=== PATIENT | female | born 1980 | race African-American/Black ===

== ENCOUNTER 2017-03-08 11:34 | Emergency (ER) | payer BC ==
[~2017-03-08] VITALS: Ht 172.7 cm; Wt 77.1 kg
[~2017-03-08 11:34] MED LIST: VALTREX 500 MG500 M1
[2017-03-08] MEDS ORDERED: PREDNISONE 20 M20 MG PO (12:49)
[2017-03-08 12:56] VITALS: BP 140/92
== END 2017-03-08 12:58 | disposition home or self-care (01) ==
LOC: M.ERS 11:34
DX: R05 Cough (principal); R06.02 Shortness of breath; Z91.013 Allergy to seafood

== ENCOUNTER 2017-04-22 09:28 | Emergency (ER) | payer BC ==
[~2017-04-22] VITALS: Ht 175.3 cm; Wt 81.7 kg
[~2017-04-22 09:28] MED LIST changes: +PREDNISONE 20 M20 MG PO
[2017-04-22 10:46] LABS: ANION GAP 6 mmol/L (7-16); BUN 11 mg/dL (7-18); CALCIUM 8.9 mg/dL (8.5-10.1); CHLORIDE 107 mmol/L (98-107); CO2 28 mmol/L (21-32); CREATININE 1.2 mg/dL (0.6-1.3); GLUCOSE 90 mg/dL (70-99); POTASSIUM 3.6 mmol/L (3.5-5.1); SODIUM 141 mmol/L (136-145)
[2017-04-22 10:47] LABS: ABSOLUTE EOSINOPHILS 0.1 thou/uL (0.0-0.7); ABSOLUTE LYMPHOCYTES 1.3 thou/uL (0.8-5.3); ABSOLUTE MONOCYTES 0.4 thou/uL (0.0-1.2); ABSOLUTE NEUTROPHILS 2.1 thou/uL (1.6-8.1); BASOPHILS 0.6 %; EOSINOPHILS 3.1 %; HEMATOCRIT 35.8 % (37.0-47.0); HEMOGLOBIN 11.9 gm/dL (12.0-15.0); LYMPHOCYTES 32.4 %; MCH 29.7 pg (26.0-34.0); MCHC 33.1 g/dL (28.0-37.0); MCV 89.5 fL (80.0-100.0); MONOCYTES 9.3 %; MPV 8.8 fl. (7.2-11.1); NUCLEATED RBCS 0 /100WBC; PLATELET COUNT* 231 thou/uL (150-400); POLYS 54.6 %; RDW-CV 13.5 % (10.5-14.5); WBC 3.9 thou/uL (4.0-11.0)
[2017-04-22 10:55] LABS: ALBUMIN 3.8 g/dL (3.4-5.0); ALKALINE PHOSPHATASE 64 U/L (46-116); SGOT 19 U/L (15-37); SGPT 18 U/L (30-65); TOTAL BILIRUBIN 0.6 mg/dL (<0.1-1.0); TOTAL PROTEIN 7.9 g/dL (6.4-8.2); TROPONIN-I LEVEL <0.06 ng/mL (<0.06)
[2017-04-22] MEDS ORDERED: TORADOL 10 MG T10 MG PO (11:56)
[2017-04-22] MEDS ORDERED: MEDROLDOSEPACK PO (12:10)
[2017-04-22 12:23] VITALS: BP 112/73
--- NOTE | 2017-04-23 13:40 | EKG ---
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
== END 2017-04-22 12:24 | disposition home or self-care (01) ==
LOC: M.ERS 09:28
PROVIDERS: Personal Emergency Response Attendant
DX: R09.1 Pleurisy (principal); Z91.013 Allergy to seafood

== ENCOUNTER 2017-08-21 19:04 | Inpatient (IN) | payer BC ==
[~2017-08-21] VITALS: Ht 175.3 cm; Wt 83.5 kg
[~2017-08-21 19:04] MED LIST changes: +MEDROLDOSEPACK PO; +TORADOL 10 MG T10 MG PO
[2017-08-21 19:05] VITALS: BP 136/89
[2017-08-21 19:31] LABS: ABSOLUTE EOSINOPHILS 0.1 thou/uL (0.0-0.7); ABSOLUTE LYMPHOCYTES 2.5 thou/uL (0.8-5.3); ABSOLUTE MONOCYTES 0.6 thou/uL (0.0-1.2); ABSOLUTE NEUTROPHILS 1.8 thou/uL (1.6-8.1); BASOPHILS 0.8 %; EOSINOPHILS 2.4 %; HEMATOCRIT 36.6 % (37.0-47.0); HEMOGLOBIN 12.3 gm/dL (12.0-15.0); LYMPHOCYTES 49.2 %; MCHC 33.6 g/dL (28.0-37.0); MCV 89.2 fL (80.0-100.0); MONOCYTES 11.7 %; MPV 8.9 fl. (7.2-11.1); NUCLEATED RBCS 0 /100WBC; PLATELET COUNT* 271 thou/uL (150-400); POLYS 35.9 %; RBC 4.11 mil/uL (4.20-5.00); RDW-CV 13.1 % (10.5-14.5); WBC 5.1 thou/uL (4.0-11.0)
[2017-08-21 19:38] LABS: CALCIUM 9.4 mg/dL (8.5-10.1); CREATININE 1.2 mg/dL (0.6-1.3); POTASSIUM 3.3 mmol/L (3.5-5.1)
[2017-08-21 19:43] LABS: ALBUMIN 4.3 g/dL (3.4-5.0); TOTAL BILIRUBIN 0.4 mg/dL (<0.1-1.0); TOTAL PROTEIN 8.9 g/dL (6.4-8.2)
--- NOTE | 2017-08-21 21:28 | NUR ---
PATIENT RESTING IN BED WITH AT BEDSIDE. VERBALIZES UNDERSTANDING OF ADMISSION. NO COMPLAINTS OF PAIN OR DISCOMFORT NOTED.
[2017-08-21 21:30] VITALS: BP 133/88
[2017-08-21 21:45] VITALS: BP 128/85
[2017-08-21 22:34] LABS: URINE BILIRUBIN NEGATIVE (Negative); URINE BLOOD NEGATIVE (Negative); URINE CLARITY CLEAR; URINE COLOR YELLOW; URINE GLUCOSE-RANDOM NEGATIVE (Negative); URINE KETONES NEGATIVE (Negative); URINE LEUKOCYTES-REFLEX TRACE (Negative); URINE NITRITE-REFLEX NEGATIVE (Negative); URINE PROTEIN NEGATIVE (Negative); URINE UROBILINOGEN 0.2 E.U./dl (0.2-1.0)
[2017-08-21 22:48] LABS: CASTS None Seen /LPF (None Seen); SQUAMOUS >10 Many /LPF (0-3)
[2017-08-21 22:49] LABS: BACTERIA-REFLEX >30 Many /HPF (None Seen); CRYSTALS None Seen /LPF (None Seen); URINE RBC 0-2 Rare /HPF (0-2)
[2017-08-21 23:00] VITALS: BP 122/86
[2017-08-22 02:36] LABS: HEMATOCRIT 33.2 % (37.0-47.0); HEMOGLOBIN 11.2 gm/dL (12.0-15.0); MCHC 33.7 g/dL (28.0-37.0); MCV 89.1 fL (80.0-100.0); MPV 8.1 fl. (7.2-11.1); RBC 3.73 mil/uL (4.20-5.00); RDW-CV 12.9 % (10.5-14.5); WBC 4.7 thou/uL (4.0-11.0)
[2017-08-22 02:56] LABS: ALBUMIN 3.3 g/dL (3.4-5.0); CALCIUM 8.6 mg/dL (8.5-10.1); CREATININE 1.2 mg/dL (0.6-1.3); POTASSIUM 3.9 mmol/L (3.5-5.1); TOTAL BILIRUBIN 0.4 mg/dL (<0.1-1.0); TOTAL PROTEIN 6.7 g/dL (6.4-8.2)
[2017-08-22 03:00] VITALS: BP 96/58
--- NOTE | 2017-08-22 05:08 | NUR ---
PATIENT ARRIVED VIA CART FROM ED AROUND 0. PT A/OX4 AND PLEASANT. TELE MONITOR TRACING SINUS ANJU THROUGHOUT SHIFT WITH HR IN 50'S. BP STABLE. PT DENIES PAIN, JUST REPORTING INTERMITTENT CHEST HEAVINESS. ON ROOM AIR. PT REPORTING TINGLING SENSATOIN AND SHARP PAINS IN RIGHT LE AT TIMES. DENIES HAVING ANY U/S DONE. UP AD JUVENAL AND STEADY ON FEET, DENIES DIZZINESS. IV SALINE LOCKED. SEE CHARTING. CALL LIGHT IN REACH, WILL CONTINUE WITH PLAN OF CARE.
[2017-08-22 08:00] VITALS: BP 116/78
--- NOTE | 2017-08-22 10:37 | EKG ---
[place] [address] ELECTROCARDIOGRAM REPORT Name: GEGE FARRELL Room: [address] ADM IN .R.#: [id number] Admission: 08/21/17 Attend Phys: Jessica Pierce MD Discharge: Date of : 80 Report #: [id number] THIS REPORT FOR: //name// 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: : 1980 Requested By: Jessica Pierce Order Number: [id number] Reading MD: Flako Trammell Measurements Intervals [place] Rate: 46 P: 62 NH: 171 QRS: 55 QRSD: 97 T: 31 QT: 502 QTc: 440 Interpretive Statements Sinus bradycardia Compared to ECG 04/22/2017 09:32:48 Sinus rhythm no longer present Electronically Signed On 08-22-2017 10:37:38 CDT by Flako Trammell [email or web address] <ELECTRONICALLY SIGNED> By: Flako Trammell MD, [facility] 08/22/17 1037 13 13 Flako Trammell MD, [facility] /EPI
--- NOTE | 2017-08-22 11:22 | NUR ---
ASSUMED CARE OF PATIENT THIS AM AT 0730. PATIENT IS ALERT AND ORIENTED X 4. SHE C/O PAIN TO HER RIGHT LEG AND LEFT LATERAL CHEST THIS AM. PATIENT STATED THE NUMBNESS ALSO CONTINUES TO HER RIGHT CALF. DR LOPEZ IN TO ROUND AND ORDERS WRITTEN. ORTHOSTATICS COMPLETED AND REPORTED TO . PATIENT TAKEN TO RADIOLOGY X 2 FOR US AND MRI AND RETURNED. BEDSIDE ECHO PERFORMED. PATIENT IS RESTING IN BED BETWEEN PROCEDURES. TELE SHOWS SINUS ANJU ARRYTHMIA. WILL CONTINUE TO MONITOR. NO FALLS OR INJURY.
[2017-08-22 12:34] VITALS: BP 105/69
--- NOTE | 2017-08-22 13:08 | 2DMMODE ---
[place] [address] 2 D/M-MODE ECHOCARDIOGRAM Name: GEGE FARRELL Room: [address] IN [facility]#: [id number] Admission: 08/21/17 Attend Phys: Jessica Pierce, Discharge: Date of : 80 Date of Service: 08/22/17 1308 Report #: [id number] THIS REPORT FOR: //name// APPROVED REPORT Study performed: 08/22/2017 10:12:59 EXAM: Comprehensive 2D, Doppler, and color-flow Echocardiogram Patient Location: In-Patient Room #: [facility] Status: routine BSA: 1.90 HR: 60 bpm BP: 96/58 mmHg Rhythm: NSR Other Information Study Quality: Good Indications Abnormal ECG Bradycardia 2D Dimensions LVEF(%): 66.79 (>50%) IVSd: 10.18 (7-11mm) LVOT Diam: 23.78 (18-24mm) LVDd: 43.85 mm PWd: 7.56 (7-11mm) Ascending Ao: 30.70 (22-36mm) LVDs: 27.75 (25-40mm) Aortic Root: 33.44 mm Ramos's LVEF: 66.79 % Volumes Left Atrial Volume (Systole) LA ESV Index: 26.00 mL/m2 Aortic Valve AoV Peak Shaw.: 1.33 m/s AO Peak Gr.: 7.03 mmHg LVOT Max P.80 mmHg AO Mean Gr.: 3.52 mmHg LVOT Mean P.04 mmHg LVOT Max V: 1.10 m/s AO V2 VTI: 25.94 cm LVOT Mean V: 0.64 m/s ROSETTA (VTI): 4.08 cm2 LVOT V1 VTI: 23.83 [place] [address] 2 D/M-MODE ECHOCARDIOGRAM Name: GEGE FARRELL Room: [address] IN [facility]#: [id number] Admission: 08/21/17 Attend Phys: Jessica Pierce, Discharge: Date of : 80 Date of Service: 08/22/17 1308 Report #: [id number] E/A Ratio: 1.76 MV Decel. Time: 229.99 ms MV E Max Shaw.: 0.78 m/s MV PHT: 66.70 ms MVA (PHT): 3.30 cm2 TDI E/Lateral E': 4.33 E/Medial E': 5.20 Medial E' Shaw.: 0.15 m/s Lateral E' Shaw.: 0.18 m/s Pulmonary Valve PV Peak Shaw.: 0.83 m/s PV Peak Gr.: 2.74 mmHg Tricuspid Valve TR Peak Gr.: 15.11 mmHg RVSP: 20.00 mmHg Left Ventricle The left ventricle is normal size. There is normal LV segmental wall motion. There is normal left ventricular wall thickness. Left ventricular systolic function is normal. The left ventricular ejection fraction is within the normal range. LVEF is 60-65%. The left ventricular diastolic function is normal. Right Ventricle The right ventricle is normal size. The right ventricular systolic function is normal. Atria The left atrium size is normal. The right atrium size is normal. Aortic Valve The aortic valve is normal in structure. No aortic regurgitation is present. There is no aortic valvular stenosis. Mitral Valve The mitral valve is normal in structure. Trace mitral regurgitation. No evidence of mitral valve stenosis. Tricuspid Valve The tricuspid valve is normal in structure. Trace tricuspid regurgitation. The RVSP is ___20___ mmHg. Pulmonic Valve The pulmonary valve is normal in structure. [place] [address] 2 D/M-MODE ECHOCARDIOGRAM Name: GEGE FARRELL Room: [address] IN M.R.#: [id number] Admission: 08/21/17 Attend Phys: Jessica Pierce, Discharge: Date of : 80 Date of Service: 08/22/17 1308 Report #: [id number] valvular regurgitation. Great Vessels The aortic root is normal in size. IVC is normal in size and collapses with >50% inspiration Pericardium There is no pericardial effusion. <Conclusion> LVEF is 60-65%. There is normal LV segmental wall motion. The left ventricular diastolic function is normal. There is no aortic valvular stenosis. No aortic regurgitation is present. No evidence of mitral valve stenosis. Trace mitral regurgitation. Trace tricuspid regurgitation. The RVSP is ___20___ mmHg. There is no pericardial effusion. <ELECTRONICALLY SIGNED> By: Flako Trammell MD, FACC 08/22/17 1308 1308 1308 Flako Trammell MD, FACC /INF
--- NOTE | 2017-08-22 14:40 | NUR ---
MET WITH PT, EX AND DTR TO DISCUSS HOME SITUATION/DC PLANNING. 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 PT IS INDEPENDENT AND ACTIVE. USES NO EQUIPMENT. DISCUSSED POC. DENIES NEEDS
[2017-08-22 16:01] VITALS: BP 113/80
[2017-08-22 20:00] VITALS: BP 104/61
[2017-08-22 23:58] VITALS: BP 99/61
[2017-08-23 04:19] VITALS: BP 99/62
--- NOTE | 2017-08-23 04:27 | NUR ---
ASSUMED PT CARE AT 1930. NURSING ASSESSMENT COMPLETED AT START OF SHIFT. 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 PT C/O OF CHEST DISCOMFORT THIS SHIFT. PRN PAIN MEDICATION ADMINISTERED AND EFFECTIVE. PT RESTED WELL THIS SHIFT. HOURLY ROUNDING COMPLETED, CALL LIGHT WITHIN REACH.
[2017-08-23 07:45] VITALS: BP 123/73
--- NOTE | 2017-08-23 10:25 | NUR ---
RECEIVED REPORT FROM EVA AND ASSUMED CARE OF PT @ 9414.PT IS A/O X4,VSS,TRACING SB ON THE MONITOR.LUNG SOUNDS ARE CLEAR.PT STATES HAS NOT HAD BM WHILE ADMITTED.IV RIGHT AC PATENT AND SALINE LOCKED.PT IS CALM AND COOPERATIVE WITH NO C/O PAIN AT TIME OF ASSESSMENT.UP AD JUVENAL IN ROOM.CALL LIGHT WITHIN REACH.WILL CONTINUE TO MONITOR. PT TO HAVE MRI. QUESTIONARE COMPLETED AND ON CHART.
[2017-08-23 12:10] VITALS: BP 125/62
[2017-08-23 16:25] VITALS: BP 116/75
--- NOTE | 2017-08-23 17:54 | NUR ---
VSS,CARDIAC MONITORING IN PLACE WITH NO CHANGES.PT REMAINS ON ROOM AIR.PT PAIN MANAGED WELL WITH PO MEDICATIONS.IV PATENT AND SALINE LOCKED.MRI COMPLETED.PT AMBULATED IN ROOM.HOURLY ROUNDING COMPLETED FOR PT SAFETY.CALL LIGHT WITHIN REACH.WILL CONTINUE TO MONITOR FOR DURATION OF SHIFT.
[2017-08-23 20:00] VITALS: BP 122/91
[2017-08-24 00:45] VITALS: BP 91/61
--- NOTE | 2017-08-24 05:12 | NUR ---
ASSUMED PT CARE AT 1930. NURSING ASSESSMENT COMPLETED AT START OF SHIFT. PT TRACING SINUS BRADICARDIA WITH HR IN LOW 40'S. PT VERBALIZES NO IMPROVEMENT IN SYMPTOMS SINCE ADMISSION TO HOSPITAL. CONTINUES TO C/O CHEST TIGHTNESS AND H/A. PRN PAIN MEDICATION ADMINISTERED. SEE EMAR FOR DOCUMENTATION. PT RESTED WELL THIS SHIFT. VOICED NO CONCERNS THIS SHIFT. HOURLY ROUNDING COMPLETED, CALL LIGHT WITHIN REACH.
[2017-08-24 05:35] VITALS: BP 109/72
[2017-08-24 07:42] VITALS: BP 109/63
--- NOTE | 2017-08-24 11:00 | NUR ---
RECEIVED REPORT FROM EVA AND ASSUMED CARE OF PT @ 2609.PT IS A/O X4,VSS,TRACING SB ON THE MONITOR.LUNG SOUNDS ARE CLEAR DIMINSHED.IV RIGHT AC PATENT AND SALINE LOCKED.PT STATES HAS NOT HAD BM SINCE ADMISSION.STOOL SOFTNER GIVEN,ABDOMEN SOFT WITH ACTIVE BOWEL SOUNDS. PT IS CALM AND COOPERATIVE WITH NO C/O PAIN AT TIME OF ASSESSMENT. PT IS UP AD JUVENAL IN ROOM.PT LEFT RESTING IN BED WITH CALL LIGHT WITHIN REACH.WILL CONTINUE TO MONITOR. PER ORDERS PT TO D/C TODAY.
[2017-08-24 11:11] VITALS: BP 109/63
[2017-08-24 13:37] VITALS: BP 121/83
[2017-08-24] MEDS ORDERED: COLCHICINE0.6 MG PO (14:03)
--- NOTE | 2017-08-24 14:08 | NUR ---
PT OK FOR DISCHARGE.PAPERWORK COMPLETED AND GIVEN TO PT.SCRIPT GIVEN WITH EDUCATION.HEART MONITOR REMOVED AND RETURNED TO NURSING STATION.IV REMOVED.ALL PERSONAL BELONGINGS PACKED AND TAKEN WITH PT.WHEELED OUT BY NURSING STAFF TO PERSONAL VEHICLE.
--- NOTE | 2017-08-24 14:25 | NUR ---
ORDERS NOTED FOR DC, DISCUSSED WITH DR LOPEZ. PT NEEDS F/U WITH ENDOCRINOLOGY [facility]. DISCUSSED WITH PT, SHE IS AGREEABLE. CALLS PLACED TO SEVERAL ENDO OFFICES IN [employer], UNABLE TO FIND APPT SOONER THAN NOV. DR GARCIA OFFICE AT [facility] WAS WILLING TO TAKE INFO AND STATED THEY WOULD HAVE DR GARCIA CONTACT DR LOPEZ TO DISCUSS AND POSSIBLY BE ABLE TO SEE SOONER. FAXED TO [phone] RECEIVED CALL FROM [facility]/DR OC COCHRAN'S OFFICE. THEY MAY HAVE A SOONER APPT AND ASKED THAT CLINICAL BE FAXED OVER ALSO. FAXED TO [phone] PH [phone] PT GIVEN ALL INFO AND MADE AWARE THAT 'S OFFICE OR CM WOULD CONTACT HER AT HOME WITH APPT INFO
--- NOTE | 2017-08-24 16:41 | NUR ---
RECEIVED CALL BACK FROM [facility]/DR OC COCHRAN. WAS ABLE TO SET UP APPT FOR 09/14 AT 1330 FOR PT. ATTEMPTED TO CALL PT, HAD TO LEAVE MESSAGE X2, MISSED A RETURN CALL FROM HER. WILL TRY TO CALL AGAIN TOMORROW.
--- NOTE | 2017-08-25 08:15 | EEG ---
[address] [address] EEG STUDY REPORT Name: GEGE FARRELL Room: [address] IN .#: [id number] Admission: 08/21/17 Attend Phys: Jessica Pierce MD Discharge: 08/24/17 Date of : 80 Report #: [id number] THIS REPORT FOR: //name// CC: Crystal Pierce DATE OF SERVICE: 08/23/2017 This patient is being evaluated for the episode of dizziness. EEG is being done to further evaluate that. EEG was done by placing the electrodes by standard 10-20 system of electrode placement. Both referential and sequential montages were used for recording. Background activity in this patient's EEG is about 11 Hz and 40 microvolt. It is a symmetrical activity. The patient went to sleep that was associated with bilaterally symmetrical sleep spindle, vertex sharp waves and K complexes and hypnagogic hypersynchrony. Throughout the record no active epileptiform activity was noticed. IMPRESSION: This patient's EEG is within normal limit. Thank you very much for this referral. <ELECTRONICALLY SIGNED> By: Mehul Lord MD 08/25/17 0815 0734 [id number] Lord MD /nt
--- NOTE | 2017-08-25 08:15 | CON ---
[facility] [address] [place] [address] CONSULTATION Name: GEGE FARRELL Room: [address] IN .R.#: [id number] Admission: 08/21/17 Attend Phys: Jessica Pierce MD Discharge: 08/24/17 Date of : 80 Report #: [id number] THIS REPORT FOR: //name// CC: Crystal Pierce DATE OF SERVICE: 08/22/2017 HISTORY OF PRESENT ILLNESS: This is a 36-year-old female patient who was evaluated by me for any neurological etiology for the patient's weakness in the lower extremities. The patient is physically very active and was doing the exercises when she noticed that she had weakness in the lower extremities especially on the left side. There was no trauma associated with it. There was also some numbness associated with it. Some of the records indicate that her blood pressure was found to be low at that time and the record from [facility] indicates it was found to be in the 40s. The patient does not know any history in that regard. REVIEW OF SYSTEMS: Indicate that she does have some hypokalemia of 3.3 when she came in, but that has been normalized. She is pretty active. She did say she had some chest pain. This chest pain is longstanding. She has been seen in the Emergency Room and those records were reviewed and she is getting an echocardiogram done. The last time she came to the Emergency Room, she had workup to look for any pulmonary embolus because D-dimer was trace high. A 14-point review of system was carried out and this was relevant 14-point review of system. PAST MEDICAL HISTORY: Positive for chest pain which is going on for some time. FAMILY HISTORY: Negative for early age strokes. SOCIAL HISTORY: As mentioned above, the patient indicates she is very active and does exercise on a regular basis. She does not smoke or drink any alcohol. PHYSICAL EXAMINATION: The patient's examination indicate she is alert and responsive. She is able to follow simple and complex command. Her speech, concentration, fund of knowledge and memory is at her baseline. Cranial nerve examination 2-12 is unremarkable. She has a symmetrical strength, sensation, reflexes and tone in all four extremities. There are no meningeal signs. There is no carotid bruit. There is no upgoing plantar. I believe the pulses are palpable in this patient. She has no edema, cyanosis or jaundice. I could not have a very good look at the patient's fundus. Cardiac examination indicates she has some murmur in the heart, but she is going to be evaluated by Cardiology. No respiratory difficulty or rhonchi was noticed. She is reasonably well-developed individual who does not have any dysmorphic features of eyes, ears and face. Her vision and hearing is adequate. [place] [address] CONSULTATION Name: GEGE FARRELL Room: [address] IN [facility]#: [id number] Admission: 08/21/17 Attend Phys: Jessica Pierce MD Discharge: 08/24/17 Date of : 80 Report #: [id number] mass. Her blood pressure is 96/58, pulse is 53 and temperature is 98.9. LABORATORY DATA: Her white count is 4.7. IMPRESSION: With this presentation, I think we initially need to make sure that she does not have anything in her aorta or heart, which is compromising the circulation to the thoracic spinal cord. We will also like to exclude any structural pathology, but those things are difficult to exclude especially something like AV malformation is very difficult to exclude in this patient especially with the kind of sophistication we have. I will recommend doing some workup here. I will get an MRI of the thoracic spine. I will go ahead and get it ____ without contrast and I discussed the potential side effect of contrast with her and she understands that and I think it would be a good idea to get it done with contrast to look for any AV malformation there. She does have a urinary tract infection, but that is unlikely to be the explanation of the patient's symptoms. Similarly, she has mildly decreased potassium and that is also unlikely to be the reason for the patient's symptom especially she has no family history for hypokalemic periodic paralysis and the symptoms are not consistent with it. RECOMMENDATIONS: We will await the cardiology workup especially to make sure there is nothing in the patient's aorta and they may like to do a DARIO on her also. That will be to have a better look at the patient's aorta. We will see what the MRI of the thoracic spine shows and do the further workup accordingly. The patient is agreeable with this plan. She understands the pros and cons of that. <ELECTRONICALLY SIGNED> By: Mehul Lord MD 08/25/17 0815 1022 1227Mehul Lord MD /nt
--- NOTE | 2017-08-27 11:50 | CON ---
[address] [address] CONSULTATION Name: GEGE FARRELL Room: [address]#: [id number] Admission: 08/21/17 Attend Phys: Jessica Pierce MD Discharge: 08/24/17 Date of : 80 Report #: [id number] THIS REPORT FOR: //name// CC: Crystal Pierce DATE OF SERVICE: 08/22/2017 PRIMARY CARE PHYSICIAN: Crystal Her MD CHIEF COMPLAINT: Chest pain, numbness, weakness. HISTORY OF PRESENT ILLNESS: The patient is a 36-year-old female who had been having off and on symptoms of chest discomfort over the last several weeks, which has been increasing in frequency and severity. They are sharp, reproducible with palpation and deep breath, especially with coughing. They are left-sided. There is no correlation with meals. She denies exertional shortness of breath. She is very active. She exercises regularly. She came in to the Emergency Room with this chest discomfort, but also numbness and weakness on the right side of her body and ultimately she was admitted for an evaluation for a neurologic process. A CT scan of the brain was performed in the Emergency Room and an MRI is pending. There is apparently a family history of heart disease and thrombosis. Because of the cramping in her right leg a Doppler was performed, which was negative for venous thrombosis. PAST MEDICAL HISTORY: Significant for menorrhagia, pruritus. ALLERGIES: SHE HAS ALLERGIES TO SHELLFISH. MEDICATIONS: She came on no chronic medications. SOCIAL HISTORY: She is a nonsmoker. She does not drink. FAMILY HISTORY: She is adopted, but does know the family history of her mom. PAST SURGICAL HISTORY: Prior BTL and apparently she had injured her Achilles tendon. REVIEW OF SYSTEMS: GENERAL: Denies fevers or chills. [place] [address] CONSULTATION Name: FARRELLLEXI YIPIDETH Leatha Room: [address]#: [id number] Admission: 08/21/17 Attend Phys: Jessica Pierce MD Discharge: 08/24/17 Date of : 80 Report #: [id number] PULMONARY: She did have a bronchitis episode this past March requiring antibiotics. HEENT: Denies headache, but had facial numbness and her lips were numb in addition to her right side. CARDIOVASCULAR: Positive chest pain. No palpitations, no orthopnea, no PND, no edema, no dyspnea with activity. No chest pain with activity. NEUROLOGIC: No seizures or syncope. PSYCHIATRIC: No depression or anxiety. ENDOCRINE: She is not known to be a diabetic and her lipids have always been normal on physical. SKIN: There are no rashes. PHYSICAL EXAMINATION: VITAL SIGNS: Blood pressure is normal today. She is in a sinus rhythm with heart rate in the 50s, occasionally dropping down in the 40s and bradycardia overnight. Blood pressure this morning is 116/78, temperature is 36.7. GENERAL: This is a pleasant adult female. She is in no apparent distress. EYES: EOMs intact. No facial asymmetry. NECK: Supple. No jugular venous distention. Carotid upstrokes are normal. I could not hear bruits. CARDIOVASCULAR: Regular. I cannot hear a murmur or S3. LUNGS: Clear to auscultation bilaterally. ABDOMEN: Nontender. EXTREMITIES: There is no peripheral edema. SKIN: Warm and dry. DIAGNOSTIC DATA: Electrocardiogram demonstrates a sinus bradycardia with mild early repolarization, heart rate 46. Normal ST segments. There is a T-wave inversion in lead V1. LABORATORY DATA: Her cardiac troponin level is 0.06 x 3 sets. Her hemoglobin is 11.2, white blood cell count is 4.7, platelet count is 236,000. Sodium is 138, potassium 3.9, chloride is 106, CO2 is 26, BUN is 11, creatinine is 1.2, AST is 18, ALT 17. HCG is less than 6. TSH is 0.346. T4 was 0.77. IMPRESSION: 1. Chest pain. Her symptoms are atypical for angina. They seem pleuritic. I would like to trial her on an anti-inflammatory. An echocardiogram is pending. She has lower cardiovascular risk profile; her only cardiovascular risk factor is a family history. If she is having continued symptoms despite a treatment with an anti-inflammatory in 2 weeks, we can consider an exercise stress test. 2. Bradycardia. I have to think that this might be related to thyroid disease as she has a low level of T4 level. An echocardiogram is pending. [address] [place] [address] CONSULTATION Name: GEGE FARRELL Room: [address]#: [id number] Admission: 08/21/17 Attend Phys: Jessica Pierce MD Discharge: 08/24/17 Date of : 80 Report #: [id number] 3. Numbness, weakness. This could be secondary to dehydration and hypokalemia. A neurologic workup is pending. <ELECTRONICALLY SIGNED> By: Flako Trammell MD, FACC 08/27/17 1150 1230 [id number] Trammell MD, FACC /nt
--- NOTE | 2017-08-29 14:26 | NUR ---
RECEIVED CALL FROM DR. GARCIA OFFICE REAGARDING APPT TO SEE AN ENDCRINOLOGIST. THEY HAD A CANCELLATION AND ARE ABLE TO SEE HER ON 08/30. THEY CONTACTED THE PATIENT TO NOTIFY HER OF APPT.
== END 2017-08-24 14:15 | disposition home or self-care (01) | DRG 74 ==
LOC: M.ERS 19:04 → M.2W 20:23 → M.TBA-ER 20:23 → M.2W 21:54
PROVIDERS: Emergency Medicine; ADMIT Internal Medicine
DX: G57.91 Unspecified mononeuropathy of right lower limb (principal); N39.0 Urinary tract infection, site not specified; R00.1 Bradycardia, unspecified; E87.6 Hypokalemia; E03.9 Hypothyroidism, unspecified; D35.2 Benign neoplasm of pituitary gland; Z91.013 Allergy to seafood; Z82.49 Family history of ischemic heart disease and other diseases of the circulatory system; Z79.899 Other long term (current) drug therapy

== ENCOUNTER → 2018-04-17 | Outpatient (CLI) | payer BC ==
[~2018-04-17] MED LIST changes: +COLCHICINE0.6 MG PO
== END ==
LOC: M.RAD 15:51
DX: R19.5 Other fecal abnormalities (principal)

== ENCOUNTER → 2018-11-23 | Outpatient (CLI) | payer BC | LOC: M.ULTRA 11:30 | DX: N83.202 Unspecified ovarian cyst, left side (principal) ==

== ENCOUNTER → 2018-12-17 | Outpatient (CLI) | payer BC | LOC: M.RAD 13:36 | DX: Z12.31 Encounter for screening mammogram for malignant neoplasm of breast (principal) ==

== ENCOUNTER 2020-03-05 16:26 | Emergency (ER) | payer OTHER ==
[~2020-03-05] VITALS: Ht 172.7 cm; Wt 76.2 kg
[2020-03-05 17:55] LABS: ABSOLUTE BASOPHILS 0.1 thou/uL (0.0-0.2); ABSOLUTE EOSINOPHILS 0.2 thou/uL (0.0-0.7); ABSOLUTE LYMPHOCYTES 1.7 thou/uL (0.8-5.3); ABSOLUTE MONOCYTES 0.4 thou/uL (0.0-1.2); ABSOLUTE NEUTROPHILS 2.8 thou/uL (1.6-8.1); BASOPHILS 1.3 %; EOSINOPHILS 3.7 %; HEMATOCRIT 35.2 % (37.0-47.0); HEMOGLOBIN 11.8 gm/dL (12.0-15.0); LYMPHOCYTES 33.9 %; MCH 30.7 pg (26.0-34.0); MCHC 33.6 g/dL (28.0-37.0); MCV 91.4 fL (80.0-100.0); MONOCYTES 7.1 %; MPV 7.8 fl. (7.2-11.1); NUCLEATED RBCS 0 /100WBC; PLATELET COUNT* 234 thou/uL (150-400); RBC 3.85 mil/uL (4.20-5.00); RDW-CV 13.3 % (10.5-14.5); WBC 5.2 thou/uL (4.0-11.0)
[2020-03-05 18:09] LABS: ALBUMIN 3.8 g/dL (3.4-5.0); CALCIUM 8.9 mg/dL (8.5-10.1); CREATININE 1.3 mg/dL (0.6-1.3); POTASSIUM 4.1 mmol/L (3.5-5.1); TOTAL BILIRUBIN 0.4 mg/dL (<0.1-1.0); TOTAL PROTEIN 7.9 g/dL (6.4-8.2)
[2020-03-05 18:21] VITALS: BP 129/88
--- NOTE | 2020-03-09 13:41 | EKG ---
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
== END 2020-03-05 18:22 | disposition home or self-care (01) ==
LOC: M.ERS 16:26
PROVIDERS: Physician Assistant
DX: R07.89 Other chest pain (principal); R00.1 Bradycardia, unspecified; R53.1 Weakness; R53.83 Other fatigue; R06.02 Shortness of breath; Z20.828 Contact with and (suspected) exposure to other viral communicable diseases; Z98.51 Tubal ligation status; Z91.013 Allergy to seafood

== ENCOUNTER 2020-05-17 12:00 | Emergency (ER) | payer OTHER ==
[~2020-05-17] VITALS: Ht 172.7 cm; Wt 80.7 kg
[2020-05-17 12:22] LABS: URINE BILIRUBIN NEGATIVE (Negative); URINE BLOOD 1+ (Negative); URINE CLARITY CLEAR; URINE COLOR YELLOW; URINE GLUCOSE-RANDOM NEGATIVE (Negative); URINE KETONES NEGATIVE (Negative); URINE PROTEIN NEGATIVE (Negative)
[2020-05-17 12:23] LABS: URINE LEUKOCYTES-REFLEX 3+ (Negative); URINE NITRITE-REFLEX POSITIVE (Negative)
[2020-05-17 12:27] LABS: BACTERIA-REFLEX >30 Many /HPF (None Seen); CASTS None Seen /LPF (None Seen); CRYSTALS None Seen /LPF (None Seen); MUCUS None Seen strn/LPF (None Seen); SQUAMOUS 0-3 Few /LPF (0-3); URINE WBC-REFLEX >25 Many /HPF (0-5)
[2020-05-17 12:35] LABS: ABSOLUTE BASOPHILS 0.1 thou/uL (0.0-0.2); ABSOLUTE LYMPHOCYTES 0.8 thou/uL (0.8-5.3); ABSOLUTE MONOCYTES 0.6 thou/uL (0.0-1.2); BASOPHILS 0.7 %; EOSINOPHILS 0.2 %; HEMATOCRIT 34.3 % (37.0-47.0); HEMOGLOBIN 11.4 gm/dL (12.0-15.0); LYMPHOCYTES 9.3 %; MCH 29.9 pg (26.0-34.0); MCHC 33.2 g/dL (28.0-37.0); MONOCYTES 7.6 %; MPV 7.5 fl. (7.2-11.1); NUCLEATED RBCS 0 /100WBC; PLATELET COUNT* 279 thou/uL (150-400); POLYS 82.2 %; RBC 3.81 mil/uL (4.20-5.00); RDW-CV 13.2 % (10.5-14.5); WBC 8.5 thou/uL (4.0-11.0)
[2020-05-17 12:42] LABS: CALCIUM 8.6 mg/dL (8.5-10.1); CREATININE 1.5 mg/dL (0.6-1.3); POTASSIUM 3.6 mmol/L (3.5-5.1)
[2020-05-17 12:46] LABS: TOTAL BILIRUBIN 0.9 mg/dL (<0.1-1.0); TOTAL PROTEIN 8.3 g/dL (6.4-8.2)
[2020-05-17] MEDS ORDERED: ZOFRAN ODT4 MG PO (15:08)
[2020-05-17] MEDS ORDERED: NORCO5 PO (15:08)
[2020-05-17] MEDS ORDERED: CEFDINIR300 MG PO (15:08)
[2020-05-17] MEDS ORDERED: PYRIDIUM100 M1 PO (15:08)
[2020-05-17] MEDS ORDERED: IBUPROFEN 800800 M1 PO (15:08)
[2020-05-17 15:35] VITALS: BP 109/76
== END 2020-05-17 15:37 | disposition home or self-care (01) ==
LOC: M.ERS 12:00
PROVIDERS: Nurse Practitioner Family
DX: N12 Tubulo-interstitial nephritis, not specified as acute or chronic (principal); Z98.51 Tubal ligation status; Z91.013 Allergy to seafood